=== PATIENT | male | born 2000 | race Caucasian/White ===

== ENCOUNTER 2020-11-24 18:10 | Emergency (ER) | payer OTHER ==
[2020-11-24] MEDS ORDERED: Ketorolac Tromethamine 30 MG/ML VIAL ONE (18:43)
[2020-11-24] MEDS ORDERED: Ondansetron PF 4 MG/2 ML Vial ONE (18:43)
[2020-11-24] MEDS ORDERED: Fentanyl 100 MCG/2 ML VIAL ONE (18:43)
[2020-11-24 19:02] LABS: #Lymphocytes 2.1 thou/uL (1.20-3.40); #Monocytes 1.4 thou/uL (0.11-0.59); #Neutrophils 10.1 thou/uL (1.40-6.50); %Basophils 0.1 % (0.0-1.0); %Eosinophils 0.2 % (0.0-10.0); %Lymphocytes 15.3 % (28.0-48.0); %Monocytes 10.3 % (0.0-4.0); %Neutrophils 74.2 % (31.0-61.0); Hemoglobin 16.8 g/dL (14.0-18.0); Mean Corpuscular HGB CONC 34.5 g/dL (32.0-36.0); Mean Corpuscular Hemoglobin 30.5 pg (25.0-35.0); Mean Corpuscular Volume 88.4 fL (78.0-98.0); Mean Platelet Volume 7.2 fL (7.4-10.4); Platelet Count 216 thou/uL (130-400); RBC Distribution Width 11.8 % (11.5-14.5); Red Blood Cell (RBC) Count 5.52 mill/uL (4.00-5.20); White Blood Cell (WBC) Count 13.6 thou/uL (4.8-10.8)
[2020-11-24 19:26] LABS: ALT (SGPT) 22 U/L (8-55); AST (SGOT) 24 U/L (5-34); Albumin 5.2 g/dL (3.5-5.0); Alkaline Phosphatase 67 U/L (50-130); Anion Gap 17 mmol/L (10-20); BUN (Urea Nitrogen) 11 mg/dL (8.9-20.6); Bilirubin, Total 2.9 mg/dL (0.2-1.2); Calc. Creatinine Clearance 0 mL/min (70-130); Calcium 10.2 mg/dL (7.8-10.44); Carbon Dioxide 26 mmol/L (22-29); Chloride 102 mmol/L (98-107); Globulin 3.6 g/dL (2.4-3.5); Glucose 89 mg/dL (70-105); Potassium 3.8 mmol/L (3.5-5.1); Protein, Total 8.8 g/dL (6.0-8.3); Sodium 141 mmol/L (136-145)
--- NOTE | 2020-11-24 19:38 | ULT ---
Scrotal ultrasound: 11/24/2020 COMPARISON: None HISTORY: Right-sided testicular pain for 2 hours TECHNIQUE: Multiplanar grayscale sonographic imaging of the scrotal contents obtained with Doppler in terrogation including color flow and spectral analysis FINDINGS: The right testicle measures 3.7 x 5.1 x 2.8 cm and demonstrates normal blood flow without e vidence for mass. Right epididymal head measures 1.5 x 0.8 cm. The left testicle measures 4.1 x 5.0 x 2.7 cm and demonstrates normal blood flow without evidence for mass. Left epididymal head measures 9 x 6 mm. IMPRESSION: Unremarkable scrotal ultrasound.
[2020-11-24 19:51] LABS: Bilirubin Negative (Negative); Blood, Urine Negative (Negative); Clarity Clear (Clear); Glucose, Urine (Dipstick) Normal (Negative); Ketone, Urine Negative (Negative); Leukocyte Negative Leu/uL (Negative); Nitrite Negative (Negative); Protein, Urine (Dipstick) Negative (Neg-Trace); Specific Gravity, Urine 1.002 (1.002-1.036); Urobilinogen Normal mg/dL (Less than 2)
[2020-11-24] MEDS ORDERED: Azithromycin 250 MG TAB ONE (19:59)
[2020-11-24] MEDS ORDERED: cefTRIAXone\\ROCEPHIN 250 MG VIAL ONE (19:59)
[2020-11-25 21:40] LABS: Chlam.trachomatis by PCR,Urine Not Detected (NotDetected)
== END 2020-11-24 19:25 | disposition home or self-care (01) ==
LOC: ERS 18:10
DX: N50.811 Right testicular pain (principal); R30.0 Dysuria; I10 Essential (primary) hypertension; F17.290 Nicotine dependence, other tobacco product, uncomplicated; Z79.899 Other long term (current) drug therapy
CPT/HCPCS: 36415; 76870; 80053; 81003; 85025; 87491; 87591; 87635; 93976; 96374; 96375; J0696; J1885; J2405; J3010; U0003

== ENCOUNTER 2023-11-24 09:25 | Day surgery (SDC) | payer OTHER ==
[2023-11-09 11:10] VITALS: BMI 23.5
[2023-11-24] MEDS ORDERED: Ferric Subsulfate 8 ML TOPICAL SOLN ONE (11:03)
[2023-11-24] MEDS ORDERED: PROPOFOL 20 ML ONE (11:06)
[2023-11-24] MEDS ORDERED: fentaNYL PF 100 MCG/2 ML SYRINGE ONE (11:06)
[2023-11-24] MEDS ORDERED: Rocuronium Bromide 10 MG/ML (10ML VIAL) ONE (11:10)
[2023-11-24] MEDS ORDERED: Lidocaine 1% PF 5 ML VIAL ONE (11:10)
[2023-11-24] MEDS ORDERED: Dexamethasone 20 MG/5 ML VIAL ONE (11:32)
[2023-11-24] MEDS ORDERED: Ondansetron PF 4 MG/2 ML Vial ONE (11:32)
[2023-11-24] MEDS ORDERED: SUGAMMADEX SODIUM 200 MG/2 ML VIAL ONE (11:39)
[2023-11-24] MEDS ORDERED: fentaNYL 50 mcg/mL 1 mL Vial ONE (12:11)
[2023-11-24] MEDS ORDERED: Hydrocodone-Acetamin 15 ML UDCUP ONE (13:01)
== END 2023-11-24 14:00 | disposition home or self-care (01) ==
LOC: SDC 09:25
PROVIDERS: ATTEND Specialist
PROC: 0CTPXZZ Resection of Tonsils, External Approach (ICD-10-PCS; principal; 2023-11-24)
DX: J35.01 Chronic tonsillitis (principal); F98.8 Other specified behavioral and emotional disorders with onset usually occurring in childhood and adolescence; Z88.1 Allergy status to other antibiotic agents; Z79.899 Other long term (current) drug therapy
CPT/HCPCS: 88304; J1100; J2405; J2704; J3010